=== PATIENT | female | born 1935 | race Caucasian/White ===

== ENCOUNTER 2018-09-07 10:05 | Inpatient (IN) | payer MEDICARE, BC ==
[2018-09-07] MEDS ORDERED: Ketorolac 30 MG/ML SDV IM ONE (10:37)
[2018-09-07] MEDS ORDERED: Sodium Chloride 0.9% 1,000 ML IV SCH (11:30)
--- NOTE | 2018-09-07 11:30 | EDM.PDOC ---
ED HPI GENERAL MEDICAL PROBLEM - General Stated Complaint: WEAKNESS CONFUSSION Time Seen by Provider: 09/07/18 10:10 Source of Information: Reports: Patient, EMS, Family History Limitations: Reports: Altered Mental Status, Physical Impairment - History of Present Illness INITIAL COMMENTS - FREE TEXT/NARRATIVE: 83 y.o.w.f with multiple medical issues, was brought to the ED by her daughter, by wheelchair after she fell for the 5th time at the [facility]. Today she feel out of her bed. No LOC, however, the pt was lethargic on arrival , C/O pain all over. Pt is wheelchair bound. unable to give a HPI. BP 91/35 RR 18 Pulse ox 97% on RA Pulse 72 Temp 36.9 Onset Date: 09/07/18 Onset Time: 07:00 Duration: Hour(s):, Constant Location: Reports: Back, Generalized Quality: Reports: Dull, Pressure Severity: Moderate Improves with: Reports: Rest Worsens with: Reports: Movement Context: Reports: Trauma Associated Symptoms: Reports: Headaches, Weakness back Pain Score (Numeric/FACES): 7 - Related Data Allergies Allergy/AdvReac Type Severity Reaction Status Date / Time citalopram [From Celexa] Allergy Cannot Verified 09/07/18 11:06 Remember strawberry Allergy Indigestion Verified 09/07/18 11:06 venison Allergy doesen't Uncoded 09/07/18 11:06 know Home Meds: Home Meds Gabapentin 600 mg PO BID 02/06/16 [History] Cholecalciferol (Vitamin D3) [Vitamin D3] 2,000 unit PO DAILY 05/17/16 [History] Acetaminophen [Tylenol] 650 mg PO Q4H PRN 09/01/18 [History] Carvedilol [Coreg] 6.25 mg PO WITHBREAKFAST 09/01/18 [History] Carvedilol [Coreg] 9.375 mg PO WITHDINNER 09/01/18 [History] Ciprofloxacin HCl [Cipro] 500 mg PO BID #20 tablet 09/01/18 [Rx] Clotrimazole/Betamethasone Dip [Lotrisone Cream] 1 applic TP BID PRN 09/01/18 [ History] Cyanocobalamin/Folic Acid [Vitamin H55-Sbrko Acid] 1,000 mcg PO MOWEFR@0800 [History] Docusate Sodium [Colace] 100 mg PO Q48H 09/01/18 [History] Furosemide 20 mg PO BID@08,12 09/01/18 [History] Lisinopril 10 mg PO DAILY 09/01/18 [History] Loperamide [Imodium AD] 2 mg PO ASDIRECTED PRN 09/01/18 [History] Omeprazole 20 mg PO BIDAC 09/01/18 [History] Venlafaxine [Effexor XR] 150 mg PO DAILY 09/01/18 [History] Warfarin [Coumadin] 2.5 mg PO SUTUSA 09/01/18 [History] Warfarin [Coumadin] 5 mg PO MOWETHFR 09/01/18 [History] metFORMIN [Glucophage] 500 mg PO BIDMEALS 09/01/18 [History] traMADol [Ultram] 50 mg PO Q4H PRN 09/01/18 [History] Aspirin/Acetaminophen/Caffeine [Migraine Formula Caplet] 1 tab PO Q4H PRN [History] Gabapentin [Neurontin] 300 mg PO DAILY@1200 09/07/18 [History] Pravastatin Sodium 20 mg PO BEDTIME 09/07/18 [History] Propylene Glycol/Peg 400 [Systane Ultra 0.4-0.3% Eye Drp] 1 drop EYEBOTH TID 11/21 [History] Past Medical History HEENT History: Reports: Cataract, Impaired Vision Other HEENT History: Flame retinal hemorrhage. Corneal dystrophy OU. Cardiovascular History: Reports: High Cholesterol, Hypertension, [place] Other Cardiovascular History: Ischemic vascular disease. Lower leg edema. Thrombus left ventricle. Gastrointestinal History: Reports: GERD Other Gastrointestinal History: Duodenal ulcer. Genitourinary History: Reports: Other (See Below) Other Genitourinary History: Adrenal insufficiency. Larry's Disease. 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 Falls. Neurological History: Reports: Migraines Psychiatric History: Reports: Depression Other Psychiatric History: Mild cognitive impairment. Endocrine/Metabolic History: Reports: Obesity/BMI 30+ Dermatologic History: Reports: Other (See Below) Other Dermatologic History: rash to stomach - Infectious Disease History Infectious Disease History: Reports: Chicken Pox, Influenza, Measles, Shingles - Past Surgical History HEENT Surgical History: Reports: Cataract Surgery Social & Family History - Family History HEENT: Reports: None Cardiac: Reports: Heart Failure, IA Respiratory: Reports: None GI: Reports: None OBGYN: Reports: None Musculoskeletal: Reports: Arthritis, Back pain, Chronic Neurological: Reports: Migraines Psychiatric: Reports: Depression Hematologic: Reports: SLE Immunologic: Reports: SLE Oncologic: Reports: Uterine, Other (See Below) Other Oncologic Family History: says yes but can't remember ED ROS GENERAL - Review of Systems Review Of Systems: Unable To Obtain (Lethargic) ED EXAM, NEURO - Physical Exam Exam: See Below Exam Limited By: Physical Impairment General Appearance: Lethargic, Obese (morbid) Eye Exam: Bilateral Eye: Normal Inspection Ears: Normal External Exam Nose: Normal Inspection, Normal Mucosa Throat/Mouth: Normal Lips, Normal Voice, No Airway Compromise, Other (dry mucosal membrane) Head Exam: Atraumatic, Normocephalic Neck: Normal Inspection, Supple Respiratory/Chest: Lungs Clear (poor insp effort), Normal Breath Sounds, No Accessory Muscle Use Cardiovascular: Normal Peripheral Pulses, Regular Rate, Rhythm, No Edema, No Gallop GI/Abdominal: Normal Bowel Sounds, Distended, Tender (Female) Exam: Deferred Rectal (Female) Exam: Deferred Neurological: Abnormal Gait (unable to ambulate) Back Exam: Normal Inspection, Vertebral Tenderness (L1/L2) Extremities: Limited Range of Motion Psychiatric: Normal Affect Skin Exam: Warm, Dry, Intact, Normal Color, No Rash EKG INTERPRETATION EKG Date: 09/07/18 Time: 12:15 Rhythm: NSR Rate (Beats/Min): 70 [place]: Normal P-Wave: Present QRS: Normal ST-T: Normal QT: Normal Comparison: NA - No Prior EKG Course - Vital Signs Text/Narrative:: 83 y.o.w.f with multiple medical issues, was brought to the ED by her daughter, by wheelchair after she fell for the 5th time at the [facility]. Today she feel out of her bed. No LOC, however, the pt was lethargic on arrival , C/O pain all over. Pt is wheelchair bound. unable to give a HPI. BP 91/35 RR 18 Pulse ox 97% on RA Pulse 72 Temp 36.9 PE: Morbid obese 83 y.o.w.f, wheelchair bound, lethargic with frequent falls Imaging: head, C spine and T spine: NAD L spine: Spinal stenosis, New Compression Fx L1 (10%) Labs: BUN 81 Cl 91 GFTR 10 Cr 4.7 INR 3.00 UA: No UTI CBC nl Impression: Frequent falls, Acute renal insufficiency, Hypotension, Morbid obese , unable to ambulate, New compression Fx L1 (10%), Spinal stenosis, osteoporosis , DNR/DNI Tx: ICE t o affected area, Toradol, NS bolus 11.55 am: Consultation: Dr. Krueger: accepted the pt for admission to inpatient PT/OT Reexam: SBP dropped from 91 mto 74 temporarily improved immediately after NS bolus was given Plan: Admit to [place] Placement Last Recorded V/S: Last Vital Signs Temp Pulse 69 09/07/18 11:58 Resp 14 09/07/18 11:58 BP 92/36 L 09/07/18 11:58 Pulse Ox 100 09/07/18 11:58 - Orders/Labs/Meds Orders: Active Orders 24 hr Category Date Time Status Cooling Warming Measures [RC] ASDIRECTED Care 09/07/18 10:39 Active [place] Catheter Insertion [Insert Urinary Catheter] [OM. Care 09/07/18 11:30 Ordered PC] Q24H Urinary Catheter Assessment [RC] QSHIFT Care 09/07/18 11:27 Active Sodium Chloride 0.9% [Normal Saline] 1,000 ml Med 09/07/18 11:30 Active IV ASDIRECTED Ice Bag [Ice Therapy] [OM.PC] Routine Oth 09/07/18 10:39 Ordered Medication Orders Docusate Sodium (Colace) 100 mg PO BID PRN PRN Reason: Constipation Sodium Chloride (Normal Saline) 1,000 mls @ 125 mls/hr IV ASDIRECTED ASHLEY Last Infusion: 09/07/18 12:41 Dose: 999 mls/hr Admin: 09/07/18 11:45 Dose: 125 mls/hr Sodium Chloride (Normal Saline) 1,000 mls @ 125 mls/hr IV ASDIRECTED ASHLEY Last Infusion: 09/07/18 14:57 Dose: 0 mls/hr Admin: 09/07/18 13:40 Dose: 125 mls/hr Sodium Chloride (Normal Saline) 1,000 mls @ 999 mls/hr IV .BOLUS ONE Stop: 09/07/18 15:51 Last Admin: 09/07/18 14:56 Dose: 999 mls/hr Ondansetron HCl (Zofran) 4 mg IV Q4H PRN PRN Reason: Nausea/Vomiting Labs: Laboratory Tests 09/07/18 09/07/18 09/07/18 Range/Units 10:55 10:55 10:55 WBC 9.8 (4.5-12.0) X10-3/uL RBC 4.21 (3.23-5.20) x10(6)uL Hgb 12.0 (11.5-15.5) g/dL Hct 35.8 (30.0-51.3) % MCV 85.2 (80-96) fL MCH 28.4 (27.7-33.6) pg MCHC 33.4 (32.2-35.4) g/dL RDW 14.0 (11.5-15.5) % Plt Count 329 (125-369) X10(3)uL MPV 9.3 (7.4-10.4) fL Neut % (Auto) 66.7 (46-82) % Lymph % (Auto) 21.5 (13-37) % Swisher % (Auto) 9.2 (4-12) % Eos % (Auto) 2 (1.0-5.0) % Baso % (Auto) 1 (0-2) % Neut # (Auto) 6.5 (1.6-8.3) # Lymph # (Auto) 2.1 (0.6-5.0) # Swisher # (Auto) 0.9 (0.0-1.3) # Eos # (Auto) 0.2 (0.0-0.8) # Baso # (Auto) 0.1 (0.0-0.2) # PT 28.8 H (8.7-11.1) INR 3.00 H (0.89-1.13) Sodium 133 L (135-145) mmol/L Potassium 4.4 (3.5-5.3) mmol/L Chloride 95 L D (100-110) mmol/L Carbon Dioxide 23 (21-32) mmol/L BUN 98 H D (7-18) mg/dL Creatinine 4.3 H* (0.55-1.02) mg/dL Est Cr Clr Drug Dosing TNP Estimated GFR (MDRD) 10 L (>60) BUN/Creatinine Ratio 22.8 H (9-20) Glucose 122 H (80-116) mg/dL Lactic Acid (0.4-2.2) mmol/L Calcium 9.4 (8.6-10.2) mg/dL NT-Pro-B Natriuret Pep (<=450) pg/mL Urine Color (YELLOW) Urine Appearance (CLEAR) Urine pH (5.0-6.5) Ur Specific Reserve (1.010-1.025) Urine Protein (NEGATIVE) mg/dL Urine Glucose (UA) (NEGATIVE) mg/dL Urine Ketones (NEGATIVE) mg/dL Urine Occult Blood (NEGATIVE) Urine Nitrite (NEGATIVE) Urine Bilirubin (NEGATIVE) Urine Urobilinogen (NEGATIVE) mg/dL Ur Leukocyte Esterase (NEGATIVE) Urine WBC (0) Ur Squamous Epith Cells (NS,R,O) Urine Bacteria (NS) Urine Opiates Screen (NEGATIVE) Ur Oxycodone Screen (NEGATIVE) Ur Propoxyphene Screen (NEGATIVE) Ur Barbituates Screen (NEGATIVE) Ur Tricyclics Screen (NEGATIVE) Ur Phencyclidine Scrn (NEGATIVE) Ur Amphetamine Screen (NEGATIVE) Urine MDMA Screen (NEGATIVE) U Benzodiazepines Scrn (NEGATIVE) U Cocaine Metab Screen (NEGATIVE) U Marijuana (THC) Screen (NEGATIVE) 09/07/18 09/07/18 09/07/18 Range/Units 10:55 10:55 11:29 WBC (4.5-12.0) X10-3/uL RBC (3.23-5.20) x10(6)uL Hgb (11.5-15.5) g/dL Hct (30.0-51.3) % MCV (80-96) fL MCH (27.7-33.6) pg MCHC (32.2-35.4) g/dL RDW (11.5-15.5) % Plt Count (125-369) X10(3)uL MPV (7.4-10.4) fL Neut % (Auto) (46-82) % Lymph % (Auto) (13-37) % Swisher % (Auto) (4-12) % Eos % (Auto) (1.0-5.0) % Baso % (Auto) (0-2) % Neut # (Auto) (1.6-8.3) # Lymph # (Auto) (0.6-5.0) # Swisher # (Auto) (0.0-1.3) # Eos # (Auto) (0.0-0.8) # Baso # (Auto) (0.0-0.2) # PT (8.7-11.1) INR (0.89-1.13) Sodium (135-145) mmol/L Potassium (3.5-5.3) mmol/L Chloride (100-110) mmol/L Carbon Dioxide (21-32) mmol/L BUN (7-18) mg/dL Creatinine (0.55-1.02) mg/dL Est Cr Clr Drug Dosing Estimated GFR (MDRD) (>60) BUN/Creatinine Ratio (9-20) Glucose (80-116) mg/dL Lactic Acid 2.8 H (0.4-2.2) mmol/L Calcium (8.6-10.2) mg/dL NT-Pro-B Natriuret Pep 849 H (<=450) pg/mL Urine Color Yellow (YELLOW) Urine Appearance Clear (CLEAR) Urine pH 5.0 (5.0-6.5) Ur Specific Reserve 1.020 (1.010-1.025) Urine Protein Negative (NEGATIVE) mg/dL Urine Glucose (UA) Normal (NEGATIVE) mg/dL Urine Ketones Negative (NEGATIVE) mg/dL Urine Occult Blood Negative (NEGATIVE) Urine Nitrite Negative (NEGATIVE) Urine Bilirubin Negative (NEGATIVE) Urine Urobilinogen Normal (NEGATIVE) mg/dL Ur Leukocyte Esterase Negative (NEGATIVE) Urine WBC 0-5 (0) Ur Squamous Epith Cells Few H (NS,R,O) Urine Bacteria Few H (NS) Urine Opiates Screen (NEGATIVE) Ur Oxycodone Screen (NEGATIVE) Ur Propoxyphene Screen (NEGATIVE) Ur Barbituates Screen (NEGATIVE) Ur Tricyclics Screen (NEGATIVE) Ur Phencyclidine Scrn (NEGATIVE) Ur Amphetamine Screen (NEGATIVE) Urine MDMA Screen (NEGATIVE) U Benzodiazepines Scrn (NEGATIVE) U Cocaine Metab Screen (NEGATIVE) U Marijuana (THC) Screen (NEGATIVE) 09/07/18 Range/Units 11:29 WBC (4.5-12.0) X10-3/uL RBC (3.23-5.20) x10(6)uL Hgb (11.5-15.5) g/dL Hct (30.0-51.3) % MCV (80-96) fL MCH (27.7-33.6) pg MCHC (32.2-35.4) g/dL RDW (11.5-15.5) % Plt Count (125-369) X10(3)uL MPV (7.4-10.4) fL Neut % (Auto) (46-82) % Lymph % (Auto) (13-37) % Swisher % (Auto) (4-12) % Eos % (Auto) (1.0-5.0) % Baso % (Auto) (0-2) % Neut # (Auto) (1.6-8.3) # Lymph # (Auto) (0.6-5.0) # Swisher # (Auto) (0.0-1.3) # Eos # (Auto) (0.0-0.8) # Baso # (Auto) (0.0-0.2) # PT (8.7-11.1) INR (0.89-1.13) Sodium (135-145) mmol/L Potassium (3.5-5.3) mmol/L Chloride (100-110) mmol/L Carbon Dioxide (21-32) mmol/L BUN (7-18) mg/dL Creatinine (0.55-1.02) mg/dL Est Cr Clr Drug Dosing Estimated GFR (MDRD) (>60) BUN/Creatinine Ratio (9-20) Glucose (80-116) mg/dL Lactic Acid (0.4-2.2) mmol/L Calcium (8.6-10.2) mg/dL NT-Pro-B Natriuret Pep (<=450) pg/mL Urine Color (YELLOW) Urine Appearance (CLEAR) Urine pH (5.0-6.5) Ur Specific Reserve (1.010-1.025) Urine Protein (NEGATIVE) mg/dL Urine Glucose (UA) (NEGATIVE) mg/dL Urine Ketones (NEGATIVE) mg/dL Urine Occult Blood (NEGATIVE) Urine Nitrite (NEGATIVE) Urine Bilirubin (NEGATIVE) Urine Urobilinogen (NEGATIVE) mg/dL Ur Leukocyte Esterase (NEGATIVE) Urine WBC (0) Ur Squamous Epith Cells (NS,R,O) Urine Bacteria (NS) Urine Opiates Screen Negative (NEGATIVE) Ur Oxycodone Screen Negative (NEGATIVE) Ur Propoxyphene Screen Negative (NEGATIVE) Ur Barbituates Screen Negative (NEGATIVE) Ur Tricyclics Screen Negative (NEGATIVE) Ur Phencyclidine Scrn Negative (NEGATIVE) Ur Amphetamine Screen Positive H (NEGATIVE) Urine MDMA Screen Negative (NEGATIVE) U Benzodiazepines Scrn Negative (NEGATIVE) U Cocaine Metab Screen Negative (NEGATIVE) U Marijuana (THC) Screen Negative (NEGATIVE) Meds: Medications Generic Name Dose Route Start Last Admin Trade Name Freq PRN Reason Stop Dose Admin Docusate Sodium 100 mg 09/07/18 12:04 Colace PO BID PRN Constipation Sodium Chloride 1,000 mls @ 125 mls/hr 09/07/18 11:30 09/07/18 12:41 Normal Saline IV 999 mls/hr ASDIRECTED ASHLEY Infusion Sodium Chloride 1,000 mls @ 125 mls/hr 09/07/18 14:15 09/07/18 14:57 Normal Saline IV 0 mls/hr ASDIRECTED ASHLEY Infusion Sodium Chloride 1,000 mls @ 999 mls/hr 09/07/18 14:51 09/07/18 14:56 Normal Saline IV 09/07/18 15:51 999 mls/hr .BOLUS ONE Administration Ondansetron HCl 4 mg 09/07/18 12:04 Zofran IV Q4H PRN Nausea/Vomiting Discontinued Medications Generic Name Dose Route Start Last Admin Trade Name Freq PRN Reason Stop Dose Admin Ketorolac Tromethamine 30 mg 09/07/18 10:37 09/07/18 11:10 Toradol IM 09/07/18 10:38 30 mg ONETIME ONE Administration Departure - Departure Time of Disposition: 15:11 Disposition: Admitted As Inpatient 64 Condition: Fair Clinical Impression: Frequent falls, Compression fracture of L1 lumbar vertebra - Discharge Information - My Orders Last 24 Hours: My Active Orders 09/07/18 10:39 Cooling Warming Measures [RC] ASDIRECTED Ice Bag [Ice Therapy] [OM.PC] Routine 09/07/18 11:27 Urinary Catheter Assessment [RC] QSHIFT 09/07/18 11:30 [place] Catheter Insertion [Insert Urinary Catheter] [OM.PC] Q24H Sodium Chloride 0.9% [Normal Saline] 1,000 ml IV ASDIRECTED - Assessment/Plan Last 24 Hours: My Active Orders 09/07/18 10:39 Cooling Warming Measures [RC] ASDIRECTED Ice Bag [Ice Therapy] [OM.PC] Routine 09/07/18 11:27 Urinary Catheter Assessment [RC] QSHIFT 09/07/18 11:30 [place] Catheter Insertion [Insert Urinary Catheter] [OM.PC] Q24H Sodium Chloride 0.9% [Normal Saline] 1,000 ml IV ASDIRECTED
[2018-09-07] MEDS ORDERED: Docusate Sodium 100 MG Cap PO PRN (12:04)
[2018-09-07] MEDS ORDERED: Ondansetron 4 MG/2 ML SDV IV PRN (12:04)
[2018-09-07] MEDS: Sodium Chloride 0.9% 1,000 ML IV SCH ×2 (13:40→23:34)
--- NOTE | 2018-09-07 13:43 | CT ---
INDICATION: Falling times two years, confused, lethargic. CT HEAD WITHOUT CONTRAST: Spiral examination of the brain in the axial projection with sagittal and coronal reconstructions was obtained 09/07/18 and compared with 08/31/18. Total exam DLP = 592.35 mGy-cm. The mastoid air cells were well-aerated, as previously. There is almost complete occlusion - filling in of the right maxillary antrum, which may represent sinusitis. The paranasal sinuses otherwise were fairly well -aerated. No cranial fracture site was identified. Calcifications are noted in the left vertebral and both internal carotid arteries. No shift of midline structures was noted. The ventricles are prominent, compatible with central atrophy. The cortical sulci are also somewhat prominent , especially at the temporal lobes and frontal lobes, compatible with cortical atrophy, more severe in the temporal and frontal areas. No finding to strongly suggested an acute intracranial abnormality was seen - no bleeding site or hematoma was noted. There are periventricular areas of decreased density in the white matter, compatible with mild microvascular disease, as previously. The orbits appear to be intact. IMPRESSION: 1. No acute intracranial abnormality. 2. Central and cortical atrophy, particularly temporal lobe and frontal areas. 3. Cerebrovascular disease with internal carotid and left vertebral artery calcifications. 4. Opacification of the right maxillary antrum, raising question of sinusitis in that area. This appears to be chronic with some calcifications present and was certainly present on the previous examination. 5. No significant interval change, compared with 08/31/18 examination. Report was called to Dr. Alanis at 1157 hours on 09/07/18. [facility]
--- NOTE | 2018-09-07 14:41 | CT ---
INDICATION: Falling times two years, confused, lethargic. CT CERVICAL SPINE: Spiral axial imaging of the cervical spine was obtained 11/21 - no comparisons. Total exam DLP = 539.98 mGy-cm. The apical lung visualized showed no evidence of an acute process. Extensive calcifications are noted in the aortic arch and brachiocephalic vessels. Degenerative changes are noted at the atlantoodontoid joint with narrowing of the joint space and hypertrophic degenerative changes with sclerosis and some minimal subchondral cystic changes. There is minimal narrowing of the C2-3 disk space. Minimal narrowing of the C5-6 disk space is noted. Hypertrophic changes are noted to a mild degree at C6-7 and C7-T1, as well as T1-2. Relatively minimal narrowing of neural foramina is noted at the C3-4 and C4-5 level, mainly on the left. Hypertrophic changes are noted at the lateral masses, C2 through C7. No evidence of an acute fracture or dislocation was identified with the odontoid and the atlas appearing intact. Prevertebral space appeared to be normal. Bone density may be somewhat diminished, raising question of osteoporosis or osteomalacia - correlate clinically. IMPRESSION: 1. No acute fracture or dislocation. 2. Osteoarthritis and degenerative disk disease with hypertrophic changes most prominent at the lateral masses and the atlantoodontoid joint. 3. Possible demineralization raising question of osteoporosis or osteomalacia - correlate clinically. 4. ASD with carotid artery calcifications noted. Brachiocephalic and arch of the aorta calcifications also noted. Report was called to Dr. Alanis at 1157 hours on 09/07/18. [facility]
--- NOTE | 2018-09-07 14:47 | CT ---
INDICATION: Falling times two years, confused, lethargic. CT THORACIC SPINE: Spiral 2.5 mm axial sections were obtained through the thoracic spine with sagittal and coronal reconstructions, 09/07/18 - no comparisons. Total exam DLP = 1,388.46 mGy-cm. Vertebral body heights appear to be fairly well-maintained without evidence of a definite acute fracture or dislocation. Demineralization is suggested, compatible with osteoporosis or osteomalacia - correlate clinically. Mild hypertrophic degenerative changes are noted anteriorly off vertebral bodies with anterior disk space narrowing at upper middle and lower middle thoracic levels. A vacuum disk phenomenon is noted at 2 levels in the lower middle thoracic spine. A definite fracture or dislocation was not identified. Incidentally noted were extensive arterial calcifications in the aorta. The lungs showed no definite active infiltrate or effusion; however, there may be some mild congestion. IMPRESSION: 1. No definite acute fracture or dislocation. 2. Accentuated dorsal kyphosis due to anterior loss of intervertebral disk space in the mid thoracic spine. 3. Mild degenerative changes and disk disease thoracic spine. 4. Demineralization is suggested. 5. ASD. 6. Possible mild pulmonary vascular congestion - correlate clinically. Report was called to Dr. Alanis at 1157 hours on 09/07/18. [facility]
[2018-09-07] MEDS ORDERED: Sodium Chloride 0.9% 1,000 ML IV ONE (14:51)
--- NOTE | 2018-09-07 15:02 | CT ---
INDICATION: Falling times two years, confused, lethargic. CT LUMBOSACRAL SPINE: Spiral 2.5 mm axial sections were obtained through the lumbosacral spine with sagittal and coronal reconstructions, 09/07/18. Findings are compared with previous examination of 05/18/16 CT of the abdomen and pelvis, which includes the lumbosacral spine. Total exam DLP = 983.85 mGy-cm. There is noted an interval compression fracture and vacuum disk phenomenon at T12-L1 with the compression fracture minimal along the cranial endplate of L1. This could represent an acute or subacute - healing fracture site. It is a relatively minimal fracture site. The posterior elements appear to be intact. Along the area of the neural foramen on the right at T12-L1, there is increased soft tissue density, which could represent hematoma or herniated disk, seen on axial image #43. Above the L3 level, there is no spinal stenosis. However, at the L3-4 level, there is a minimal degree of spinal stenosis due to mild bulging of the disk and prominent ligamenta flava. At L4-5, there is somewhat more severe bulging of the disk and prominent ligamenta flava, narrowing the canal to a moderate degree. No other suggestion of a focal disk herniation was identified. There is also noted evidence of degenerative disk disease with vacuum disk phenomenon and narrowing at L4-5 and severe narrowing with almost no disk space at L5-S1. Hypertrophic degenerative changes are noted at the posterior elements, mainly at L3-4 through L5-S1. Diminished bone density overall is compatible with osteoporosis or osteomalacia - correlate clinically. IMPRESSION: 1. Osteoporotic compression fracture cranial endplate and anterior and posterior vertebral body of L1 with vacuum disk phenomenon at the T12-L1 disk space, extending into the L1 vertebral body superior endplate area. This is new compared with 2016 CT of the abdomen and pelvis and could be acute or at least subacute. Additionally, on the right at that level, there is increased soft tissue density extending from the spinal canal through the area of the neural foramen, which could represent hematoma or possibly herniated disk material - the latter felt to be less likely. MRI may be helpful for confirmation. 2. Degenerative changes and disk disease L4-5 and L5-S1 with a mild to moderate degree of spinal stenosis at L3-4 with a moderate degree of spinal stenosis at L4-5. Report was called to Dr. Alanis at 1218 hours on 09/07/18. [facility]
--- NOTE | 2018-09-07 19:32 | PCM.HP ---
H&P History of Present Illness - General Date of Service: 09/07/18 Admit Problem/Dx: Admission Diagnosis/Problem Admission Diagnosis/Problem Falls Source of Information: Patient, Old Records History Limitations: Reports: Altered Mental Status - History of Present Illness Initial Comments - Free Text/Narative: Rachel is an 83-year-old female from [facility] presented because of frequent falls. She's fallen at least 5 times in last few days, and even from bed. The millan, unable to take care of her. Rachel is protracted long history of falls , fibromyalgia, peripheral neuropathy, history of atrial fibrillation on long- term anticoagulation. She's had major depression, type 2 diabetes, hypertension that have all been previously poorly controlled. 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 back Pain Score (Numeric/FACES): 7 - Related Data Allergies/Adverse Reactions: Allergies Allergy/AdvReac Type Severity Reaction Status Date / Time citalopram [From Celexa] Allergy Cannot Verified 09/07/18 11:06 Remember strawberry Allergy Indigestion Verified 09/07/18 11:06 venison Allergy doesen't Uncoded 09/07/18 11:06 know Home Medications: Home Meds Gabapentin 600 mg PO BID 02/06/16 [History] Cholecalciferol (Vitamin D3) [Vitamin D3] 2,000 unit PO DAILY 05/17/16 [History] Acetaminophen [Tylenol] 650 mg PO Q4H PRN 09/01/18 [History] Carvedilol [Coreg] 6.25 mg PO WITHBREAKFAST 09/01/18 [History] Carvedilol [Coreg] 9.375 mg PO WITHDINNER 09/01/18 [History] Ciprofloxacin HCl [Cipro] 500 mg PO BID #20 tablet 09/01/18 [Rx] Clotrimazole/Betamethasone Dip [Lotrisone Cream] 1 applic TP BID PRN 09/01/18 [ History] Cyanocobalamin/Folic Acid [Vitamin M89-[place] Acid] 1,000 mcg PO MOWEFR@0800 [History] Docusate Sodium [Colace] 100 mg PO Q48H 09/01/18 [History] Furosemide 20 mg PO BID@08,12 09/01/18 [History] Lisinopril 10 mg PO DAILY 09/01/18 [History] Loperamide [Imodium AD] 2 mg PO ASDIRECTED PRN 09/01/18 [History] Omeprazole 20 mg PO BIDAC 09/01/18 [History] Venlafaxine [Effexor XR] 150 mg PO DAILY 09/01/18 [History] Warfarin [Coumadin] 2.5 mg PO SUTUSA 09/01/18 [History] Warfarin [Coumadin] 5 mg PO MOWETHFR 09/01/18 [History] metFORMIN [Glucophage] 500 mg PO BIDMEALS 09/01/18 [History] traMADol [Ultram] 50 mg PO Q4H PRN 09/01/18 [History] Aspirin/Acetaminophen/Caffeine [Migraine Formula Caplet] 1 tab PO Q4H PRN [History] Gabapentin [Neurontin] 300 mg PO DAILY@1200 09/07/18 [History] Pravastatin Sodium 20 mg PO BEDTIME 09/07/18 [History] Propylene Glycol/Peg 400 [Systane Ultra 0.4-0.3% Eye Drp] 1 drop EYEBOTH TID 11/21 [History] Past Medical History HEENT History: Reports: Cataract, Impaired Vision Other HEENT History: Flame retinal hemorrhage. Corneal dystrophy OU. Cardiovascular History: Reports: High Cholesterol, Hypertension, PA Other Cardiovascular History: Ischemic vascular disease. Lower leg edema. Thrombus left ventricle. Gastrointestinal History: Reports: GERD Other Gastrointestinal History: Duodenal ulcer. Genitourinary History: Reports: Other (See Below) Other Genitourinary History: Adrenal insufficiency. Moneta's Disease. 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 Falls. Neurological History: Reports: Migraines Psychiatric History: Reports: Depression Other Psychiatric History: Mild cognitive impairment. Endocrine/Metabolic History: Reports: Obesity/BMI 30+ Dermatologic History: Reports: Other (See Below) Other Dermatologic History: rash to stomach - Infectious Disease History Infectious Disease History: Reports: Chicken Pox, Influenza, Measles, Shingles - Past Surgical History HEENT Surgical History: Reports: Cataract Surgery Social & Family History - Family History HEENT: Reports: None Cardiac: Reports: Heart Failure, PA Respiratory: Reports: None GI: Reports: None OBGYN: Reports: None Musculoskeletal: Reports: Arthritis, Back pain, Chronic Neurological: Reports: Migraines Psychiatric: Reports: Depression Hematologic: Reports: SLE Immunologic: Reports: SLE Oncologic: Reports: Uterine, Other (See Below) Other Oncologic Family History: says yes but can't remember - Tobacco Use Smoking Status *Q: Unknown Ever Smoked Second Hand Smoke Exposure: No - Caffeine Use Caffeine Use: Reports: Coffee - Recreational Drug Use Recreational Drug Use: No H&P Review of Systems - Review of Systems: Review Of Systems: ROS reveals no pertinent complaints other than HPI. Exam - Exam Exam: See Below - Vital Signs Vital Signs: Last Vital Signs Temp Pulse 71 09/07/18 13:10 Resp 16 09/07/18 12:55 BP 90/60 09/07/18 13:10 Pulse Ox 100 09/07/18 13:10 Weight: 90.9 kg - Exam Quality Assessment: No: Supplemental Oxygen General: Alert, Lethargic HEENT: PERRLA, Conjunctiva Clear, Hearing Intact Neck: Supple Lungs: Clear to Auscultation Cardiovascular: Regular Rate, Regular Rhythm GI/Abdominal Exam: Normal Bowel Sounds, No Distention Skin: Warm, Dry, Intact Neurological: Cranial Nerves Intact Neuro Extensive - Mental Status: Alert, Oriented x3. No: Normal Cognition Psychiatric: Depressed - Patient Data Lab Results Last 24 hrs: Laboratory Results - last 24 hr 09/07/18 09/07/18 09/07/18 Range/Units 10:55 10:55 10:55 WBC 9.8 (4.5-12.0) X10-3/uL RBC 4.21 (3.23-5.20) x10(6)uL Hgb 12.0 (11.5-15.5) g/dL Hct 35.8 (30.0-51.3) % MCV 85.2 (80-96) fL MCH 28.4 (27.7-33.6) pg MCHC 33.4 (32.2-35.4) g/dL RDW 14.0 (11.5-15.5) % Plt Count 329 (125-369) X10(3)uL MPV 9.3 (7.4-10.4) fL Neut % (Auto) 66.7 (46-82) % Lymph % (Auto) 21.5 (13-37) % [place] % (Auto) 9.2 (4-12) % Eos % (Auto) 2 (1.0-5.0) % Baso % (Auto) 1 (0-2) % Neut # (Auto) 6.5 (1.6-8.3) # Lymph # (Auto) 2.1 (0.6-5.0) # [place] # (Auto) 0.9 (0.0-1.3) # Eos # (Auto) 0.2 (0.0-0.8) # Baso # (Auto) 0.1 (0.0-0.2) # PT 28.8 H (8.7-11.1) INR 3.00 H (0.89-1.13) Sodium 133 L (135-145) mmol/L Potassium 4.4 (3.5-5.3) mmol/L Chloride 95 L D (100-110) mmol/L Carbon Dioxide 23 (21-32) mmol/L BUN 98 H D (7-18) mg/dL Creatinine 4.3 H* (0.55-1.02) mg/dL Est Cr Clr Drug Dosing TNP Estimated GFR (MDRD) 10 L (>60) BUN/Creatinine Ratio 22.8 H (9-20) Glucose 122 H (80-116) mg/dL Lactic Acid (0.4-2.2) mmol/L Calcium 9.4 (8.6-10.2) mg/dL NT-Pro-B Natriuret Pep (<=450) pg/mL Urine Color (YELLOW) Urine Appearance (CLEAR) Urine pH (5.0-6.5) Ur Specific [place] (1.010-1.025) Urine Protein (NEGATIVE) mg/dL Urine Glucose (UA) (NEGATIVE) mg/dL Urine Ketones (NEGATIVE) mg/dL Urine Occult Blood (NEGATIVE) Urine Nitrite (NEGATIVE) Urine Bilirubin (NEGATIVE) Urine Urobilinogen (NEGATIVE) mg/dL Ur Leukocyte Esterase (NEGATIVE) Urine WBC (0) Ur Squamous Epith Cells (NS,R,O) Urine Bacteria (NS) Urine Opiates Screen (NEGATIVE) Ur Oxycodone Screen (NEGATIVE) Ur Propoxyphene Screen (NEGATIVE) Ur Barbituates Screen (NEGATIVE) Ur Tricyclics Screen (NEGATIVE) Ur Phencyclidine Scrn (NEGATIVE) Ur Amphetamine Screen (NEGATIVE) Urine MDMA Screen (NEGATIVE) U Benzodiazepines Scrn (NEGATIVE) U Cocaine Metab Screen (NEGATIVE) U Marijuana (THC) Screen (NEGATIVE) 09/07/18 09/07/18 09/07/18 Range/Units 10:55 10:55 11:29 WBC (4.5-12.0) X10-3/uL RBC (3.23-5.20) x10(6)uL Hgb (11.5-15.5) g/dL Hct (30.0-51.3) % MCV (80-96) fL MCH (27.7-33.6) pg MCHC (32.2-35.4) g/dL RDW (11.5-15.5) % Plt Count (125-369) X10(3)uL MPV (7.4-10.4) fL Neut % (Auto) (46-82) % Lymph % (Auto) (13-37) % [place] % (Auto) (4-12) % Eos % (Auto) (1.0-5.0) % Baso % (Auto) (0-2) % Neut # (Auto) (1.6-8.3) # Lymph # (Auto) (0.6-5.0) # [place] # (Auto) (0.0-1.3) # Eos # (Auto) (0.0-0.8) # Baso # (Auto) (0.0-0.2) # PT (8.7-11.1) INR (0.89-1.13) Sodium (135-145) mmol/L Potassium (3.5-5.3) mmol/L Chloride (100-110) mmol/L Carbon Dioxide (21-32) mmol/L BUN (7-18) mg/dL Creatinine (0.55-1.02) mg/dL Est Cr Clr Drug Dosing Estimated GFR (MDRD) (>60) BUN/Creatinine Ratio (9-20) Glucose (80-116) mg/dL Lactic Acid 2.8 H (0.4-2.2) mmol/L Calcium (8.6-10.2) mg/dL NT-Pro-B Natriuret Pep 849 H (<=450) pg/mL Urine Color Yellow (YELLOW) Urine Appearance Clear (CLEAR) Urine pH 5.0 (5.0-6.5) Ur Specific [place] 1.020 (1.010-1.025) Urine Protein Negative (NEGATIVE) mg/dL Urine Glucose (UA) Normal (NEGATIVE) mg/dL Urine Ketones Negative (NEGATIVE) mg/dL Urine Occult Blood Negative (NEGATIVE) Urine Nitrite Negative (NEGATIVE) Urine Bilirubin Negative (NEGATIVE) Urine Urobilinogen Normal (NEGATIVE) mg/dL Ur Leukocyte Esterase Negative (NEGATIVE) Urine WBC 0-5 (0) Ur Squamous Epith Cells Few H (NS,R,O) Urine Bacteria Few H (NS) Urine Opiates Screen (NEGATIVE) Ur Oxycodone Screen (NEGATIVE) Ur Propoxyphene Screen (NEGATIVE) Ur Barbituates Screen (NEGATIVE) Ur Tricyclics Screen (NEGATIVE) Ur Phencyclidine Scrn (NEGATIVE) Ur Amphetamine Screen (NEGATIVE) Urine MDMA Screen (NEGATIVE) U Benzodiazepines Scrn (NEGATIVE) U Cocaine Metab Screen (NEGATIVE) U Marijuana (THC) Screen (NEGATIVE) 09/07/18 Range/Units 11:29 WBC (4.5-12.0) X10-3/uL RBC (3.23-5.20) x10(6)uL Hgb (11.5-15.5) g/dL Hct (30.0-51.3) % MCV (80-96) fL MCH (27.7-33.6) pg MCHC (32.2-35.4) g/dL RDW (11.5-15.5) % Plt Count (125-369) X10(3)uL MPV (7.4-10.4) fL Neut % (Auto) (46-82) % Lymph % (Auto) (13-37) % [place] % (Auto) (4-12) % Eos % (Auto) (1.0-5.0) % Baso % (Auto) (0-2) % Neut # (Auto) (1.6-8.3) # Lymph # (Auto) (0.6-5.0) # [place] # (Auto) (0.0-1.3) # Eos # (Auto) (0.0-0.8) # Baso # (Auto) (0.0-0.2) # PT (8.7-11.1) INR (0.89-1.13) Sodium (135-145) mmol/L Potassium (3.5-5.3) mmol/L Chloride (100-110) mmol/L Carbon Dioxide (21-32) mmol/L BUN (7-18) mg/dL Creatinine (0.55-1.02) mg/dL Est Cr Clr Drug Dosing Estimated GFR (MDRD) (>60) BUN/Creatinine Ratio (9-20) Glucose (80-116) mg/dL Lactic Acid (0.4-2.2) mmol/L Calcium (8.6-10.2) mg/dL NT-Pro-B Natriuret Pep (<=450) pg/mL Urine Color (YELLOW) Urine Appearance (CLEAR) Urine pH (5.0-6.5) Ur Specific [place] (1.010-1.025) Urine Protein (NEGATIVE) mg/dL Urine Glucose (UA) (NEGATIVE) mg/dL Urine Ketones (NEGATIVE) mg/dL Urine Occult Blood (NEGATIVE) Urine Nitrite (NEGATIVE) Urine Bilirubin (NEGATIVE) Urine Urobilinogen (NEGATIVE) mg/dL Ur Leukocyte Esterase (NEGATIVE) Urine WBC (0) Ur Squamous Epith Cells (NS,R,O) Urine Bacteria (NS) Urine Opiates Screen Negative (NEGATIVE) Ur Oxycodone Screen Negative (NEGATIVE) Ur Propoxyphene Screen Negative (NEGATIVE) Ur Barbituates Screen Negative (NEGATIVE) Ur Tricyclics Screen Negative (NEGATIVE) Ur Phencyclidine Scrn Negative (NEGATIVE) Ur Amphetamine Screen Positive H (NEGATIVE) Urine MDMA Screen Negative (NEGATIVE) U Benzodiazepines Scrn Negative (NEGATIVE) U Cocaine Metab Screen Negative (NEGATIVE) U Marijuana (THC) Screen Negative (NEGATIVE) Result Diagrams: 09/07/18 10:55 09/07/18 10:55 EKG INTERPRETATION EKG Date: 09/07/18 Rhythm: Other (Junctional rhythm) - Problem List (1) Frequent falls SNOMED Code(s): 501780591 ICD Code: R29.6 - REPEATED FALLS Status: Acute Current Visit: Yes (2) Acute renal failure (ARF) SNOMED Code(s): 50786279 ICD Code: N17.9 - ACUTE KIDNEY FAILURE, UNSPECIFIED Status: Acute Current Visit: Yes Qualifiers: Acute renal failure type: unspecified Qualified Code(s): N17.9 - Acute kidney failure, unspecified (3) Hypotension SNOMED Code(s): 89766452 ICD Code: I95.9 - HYPOTENSION, UNSPECIFIED Status: Acute Current Visit: Yes (4) Afib SNOMED Code(s): 79264732 ICD Code: I48.91 - UNSPECIFIED ATRIAL FIBRILLATION Status: Acute Current Visit: Yes (5) CAD (coronary artery disease) SNOMED Code(s): 16171795 ICD Code: I25.10 - ATHSCL HEART DISEASE OF [place] CORONARY ARTERY W/O ANG PCTRS Status: Acute Current Visit: Yes Qualifiers: Coronary Disease-Associated Artery/Lesion type: [place] artery (6) Palliative care encounter SNOMED Code(s): 340950690 ICD Code: Z51.5 - ENCOUNTER FOR PALLIATIVE CARE Status: Acute Current Visit: Yes (7) HTN (hypertension) SNOMED Code(s): 21515423 ICD Code: I10 - ESSENTIAL (PRIMARY) HYPERTENSION Status: Acute Current Visit: Yes (8) Type 2 diabetes mellitus SNOMED Code(s): 07392072 ICD Code: E11.9 - TYPE 2 DIABETES MELLITUS WITHOUT COMPLICATIONS Status: Acute Current Visit: Yes Qualifiers: Diabetes mellitus custodial insulin use: without 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 (9) Fibromyalgia SNOMED Code(s): 904628184 ICD Code: M79.7 - FIBROMYALGIA Status: Chronic Current Visit: Yes (10) Peripheral neuropathic pain SNOMED Code(s): 116232831 ICD Code: M79.2 - NEURALGIA AND NEURITIS, UNSPECIFIED Status: Chronic Current Visit: Yes (11) Obesity SNOMED Code(s): 744573003, 252515677 ICD Code: E66.9 - OBESITY, UNSPECIFIED Status: Acute Current Visit: Yes (12) MDD (major depressive disorder), recurrent episode SNOMED Code(s): 614885520 ICD Code: F33.9 - MAJOR DEPRESSIVE DISORDER, RECURRENT, UNSPECIFIED Status : Chronic Current Visit: Yes Qualifiers: Major depression episode severity: moderate Qualified Code(s): F33.1 - Major depressive disorder, recurrent, moderate (13) Chronic back pain SNOMED Code(s): 393552967 ICD Code: M54.9 - DORSALGIA, UNSPECIFIED; G89.29 - OTHER CHRONIC PAIN Status: Acute Current Visit: Yes Qualifiers: Back pain location: low back pain (14) HLD (hyperlipidemia) SNOMED Code(s): 18817723 ICD Code: E78.5 - HYPERLIPIDEMIA, UNSPECIFIED Status: Acute Current Visit : Yes (15) Long-term (current) use of anticoagulants, INR goal 2.5-3.5 SNOMED Code(s): 404232900, 746557318 ICD Code: Z79.01 - CHIEF OPHTHALMIC TECHNICIAN (CURRENT) USE OF ANTICOAGULANTS Status: Acute Current Visit: Yes (16) Chronic daily headache SNOMED Code(s): 733687631313 ICD Code: R51 - HEADACHE Status: Acute Current Visit: Yes Problem List Initiated/Reviewed/Updated: Yes Orders Last 24hrs: Active Orders 24 hr Category Date Time Status Patient Status [ADT] Routine ADT 09/07/18 12:04 Active Cooling Warming Measures [RC] ASDIRECTED Care 09/07/18 10:39 Active [place] Catheter Insertion [Insert Urinary Catheter] [OM. Care 09/07/18 11:30 Ordered PC] Q24H Oxygen Therapy [RC] PRN Care 09/07/18 12:04 Active Up With Assistance [RC] ASDIRECTED Care 09/07/18 12:04 Active Urinary Catheter Assessment [RC] 08,16,00 Care 09/07/18 11:27 Active VTE/DVT Education [RC] Per Unit Routine Care 09/07/18 12:04 Active Vital Signs [RC] Q4H Care 09/07/18 12:04 Active OT Evaluation and Treatment [CONS] Routine Cons 09/07/18 12:04 Active PT Evaluation and Treatment [CONS] Routine Cons 09/07/18 12:04 Active Regular Diet [DIET] Diet 09/08/18 Breakfast Active BASIC METABOLIC PANEL,BMP [CHEM] AM Lab 09/08/18 05:11 Ordered CBC WITH AUTO DIFF [HEME] AM Lab 09/08/18 05:11 Ordered Docusate Sodium [Colace] Med 09/07/18 12:04 Active 100 mg PO BID PRN Omeprazole [Omeprazole] Med 09/08/18 07:30 Ordered 20 mg PO BIDAC Ondansetron [Zofran] Med 09/07/18 12:04 Active 4 mg IV Q4H PRN PEG 400/Propylene Glycol [Systane Lubricant] Med 09/07/18 21:00 Ordered 1 drop EYEBOTH TID Sodium Chloride 0.9% [Normal Saline] 1,000 ml Med 09/07/18 11:30 Active IV ASDIRECTED Sodium Chloride 0.9% [Normal Saline] 1,000 ml Med 09/07/18 14:15 Active IV ASDIRECTED Venlafaxine [Effexor XR] Med 09/08/18 09:00 Ordered 150 mg PO DAILY Ice Bag [Ice Therapy] [OM.PC] Routine Oth 09/07/18 10:39 Ordered Resuscitation Status Routine Resus Stat 09/07/18 12:04 Ordered Medication Orders Docusate Sodium (Colace) 100 mg PO BID PRN PRN Reason: Constipation Sodium Chloride (Normal Saline) 1,000 mls @ 125 mls/hr IV ASDIRECTED ASHLEY Last Infusion: 09/07/18 12:41 Dose: 999 mls/hr Admin: 09/07/18 11:45 Dose: 125 mls/hr Sodium Chloride (Normal Saline) 1,000 mls @ 125 mls/hr IV ASDIRECTED ASHLEY Last Infusion: 09/07/18 16:05 Dose: 125 mls/hr Infusion: 09/07/18 14:57 Dose: 0 mls/hr Admin: 09/07/18 13:40 Dose: 125 mls/hr Non-Formulary Medication (Omeprazole [Omeprazole]) 20 mg PO BIDAC ASHLEY Ondansetron HCl (Zofran) 4 mg IV Q4H PRN PRN Reason: Nausea/Vomiting Propylene Glycol (Systane Lubricant) ml EYEBOTH TID ASHLEY Venlafaxine HCl (Effexor Xr) 150 mg PO DAILY [facility] Assessment/Plan Comment:: Patient is severely dehydrated and has acute kidney injury. I'll stop Lasix and lisinopril,as well as BB,Metformin and will give fluids overnight, after she were to go 2 L of bolus of normal saline. I've also discontinued most of her medications(including pain pills,Gabapentin) and physical therapy will be consulted in the morning. Repeat BMP as well.
[2018-09-07] MEDS: PEG 400/Propylene Glycol Ophth Soln 15 ML Bottle EYEBOTH SCH (20:07)
[2018-09-08] MEDS: Acetaminophen 325 MG Tab PO PRN (06:38)
[2018-09-08] MEDS: Pantoprazole 40 MG Tab.CR PO SCH (07:50)
[2018-09-08 08:05] LABS: HEMOGLOBIN A1C 6.8 % (4.5-6.2)
[2018-09-08] MEDS: Sodium Chloride 0.9% 1,000 ML IV SCH ×2 (08:41→20:59)
[2018-09-08] MEDS: PEG 400/Propylene Glycol Ophth Soln 15 ML Bottle EYEBOTH SCH ×3 (08:42→21:00)
[2018-09-08] MEDS: Venlafaxine 150 MG Cap.ER PO SCH (08:42)
[2018-09-08] MEDS: Acetaminophen/Aspirin/Caffeine 250-250-65 MG Tab PO PRN (08:59)
--- NOTE | 2018-09-08 09:02 | PN ---
DATE SEEN: 09/08/2018 HISTORY OF PRESENT ILLNESS: Ms. Belle is an 83-year-old woman who is a current resident of [facility] with a history of intermittent atrial fibrillation on anticoagulation, type 2 diabetes, hypertension, and multiple falls. 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 The patient presented to the emergency room on 09/07/2018 in a wheelchair, brought in by her daughter after falling out of bed. She was lethargic and complained of generalized pain. ER evaluation revealed significant dehydration. Multiple x-rays of her cervical, thoracic, and lumbar spine showed only subacute L1 compression fracture and CT head was unremarkable. BUN 81, creatinine 4.7, and INR 3.0. She was admitted yesterday with significant dehydration, acute on chronic renal failure, weakness and hypotension. She was started on IV fluid replacement. Multiple of her medications were discontinued. This morning, she states she feels better, but states her mind still is not clear. She is examined in her bed and she is pleasant and answers questions appropriately. She complains of headache and not getting her Excedrin Migraine. PHYSICAL EXAMINATION: VITAL SIGNS: Blood pressure 99/55, pulse 87 and regular, respirations 17, O2 saturation 94% on room air, temperature 98.4, and weight 200 pounds 6 ounces. SKIN: Anicteric, warm, dry. She has bruising over her left forearm. HEENT: Shows her mouth to be dry. She has an abrasion on the left side of her chin. LUNGS: Clear to the bases with good air movement. HEART: Regular. No murmur or gallop heard. ABDOMEN: Normal bowel sounds. Soft and nontender. No masses. No organomegaly. Moderate obesity. EXTREMITIES: Showed no edema at the feet or ankles. Dorsalis pedis pulses are intact. Motor exam appears symmetric. MENTAL STATUS: Reveals her to be slightly cloudy in thinking, but she has good recognition of this. LABORATORY DATA: White count 7100, hemoglobin 10.4. Sodium 140, potassium 4.1, BUN 80, creatinine 2.6 (improved from 4.3) yesterday. A1c 6.8. Urinalysis negative. ASSESSMENT: 1. Severe dehydration with weakness, falls, acute on chronic renal failure. 2. History of intermittent atrial fibrillation on anticoagulation. 3. History of chronic painful peripheral neuropathy. 4. Depression. 5. Chronic essential hypertension. 6. Chronic congestive heart failure. PLAN: We will continue with IV fluid rehydration. We will resume her oral anticoagulation and cautiously allow her to have occasional Excedrin Migraine. At this time, we will continue her oral Protonix for GI bleed prophylaxis. We will have physical and occupational therapy evaluations with a goal towards strengthening and once baseline blood pressure returns to normal, we will evaluate orthostatic vital signs. We will continue to provide palliative care measures for Ms. Belle for underlying painful peripheral neuropathy, low cardiac output, CHF and generalized osteoarthritic pains. /[id number] MASSIEL/FREEMAN
[2018-09-08] MEDS ORDERED: Warfarin 5 MG Tab PO SCH (16:00)
[2018-09-08] MEDS: Warfarin 5 MG Tab PO SCH (16:55)
[2018-09-09] MEDS: Acetaminophen 325 MG Tab PO PRN ×2 (00:06→09:03)
[2018-09-09] MEDS: Pantoprazole 40 MG Tab.CR PO SCH (06:53)
[2018-09-09] MEDS ORDERED: Gabapentin 300 MG Cap PO SCH ×2 (09:00→12:00)
[2018-09-09] MEDS: Gabapentin 300 MG Cap PO SCH ×3 (09:03→20:17)
[2018-09-09] MEDS: Venlafaxine 150 MG Cap.ER PO SCH (09:03)
[2018-09-09] MEDS: PEG 400/Propylene Glycol Ophth Soln 15 ML Bottle EYEBOTH SCH ×3 (09:03→20:17)
[2018-09-09] MEDS: Lactated Ringers 1,000 ML IV SCH ×3 (09:26→23:30)
--- NOTE | 2018-09-09 09:52 | PN ---
DATE SEEN: 09/09/2018 SUBJECTIVE: Ms. Belle is an 83-year-old woman who has lived at the [facility] but has been having problems with increasing frequency of falls, confusion, and is no longer able to be cared for there. She was admitted from the emergency room on 09/07/2018 after falling out of bed, being lethargic. Extensive CT exam of her spine was negative, but she was found to be significantly dehydrated, in acute renal failure with BUN of 81 and creatinine 4.7. She was hydrated and yesterday her creatinine decreased to 2.6. She is examined in her wheelchair this morning. She complained that she did not sleep at all last night because of generalized pain. Of note is that she was on both tramadol and gabapentin as an outpatient and these were stopped on her admission. PHYSICAL EXAMINATION: GENERAL: She is alert, but moans with discomfort, complaining of back pain. VITAL SIGNS: Blood pressure 110/78, pulse 78, respirations 18, O2 saturation 94% on room air, and temperature 96. HEENT: She did have a coughing spell that was nonproductive during the exam. Mouth is dry. LUNGS: Completely clear to the bases with excellent air movement. HEART: Regular without murmur, rub, or gallop. ABDOMEN: Normal bowel sounds. Soft and nontender. EXTREMITIES: Showed no edema. LABORATORY DATA: Pending. ASSESSMENT: 1. Weakness with multiple falls. 2. Acute on chronic renal failure. 3. Chronic painful peripheral neuropathy. 4. Depression. 5. History of atrial fibrillation, on anticoagulation. 6. Chronic congestive heart failure. PLAN: I will continue her IV fluid rehydration. I will resume her gabapentin and tramadol. We will continue palliative care measures for her underlying chronic pain, chronic congestive heart failure, and underlying renal disease. I anticipate discharge to care home within 48-72 hours. /[id number] MASSIEL/FREEMAN
[2018-09-09] MEDS: traMADol 50 MG Tab PO PRN (14:21)
[2018-09-09] MEDS ORDERED: Warfarin 2.5 MG Tab PO SCH (16:00)
[2018-09-09] MEDS: Warfarin 2.5 MG Tab PO SCH (16:26)
[2018-09-09] MEDS: Acetaminophen/Aspirin/Caffeine 250-250-65 MG Tab PO PRN (23:29)
[2018-09-10] MEDS: traMADol 50 MG Tab PO PRN ×3 (00:12→23:30)
[2018-09-10] MEDS ORDERED: Diltiazem 25 MG/5 ML SDV IVPUSH ONE (00:28)
[2018-09-10] MEDS ORDERED: QUEtiapine 25 MG Tab PO ONE ×2 (00:31→22:57)
[2018-09-10] MEDS ORDERED: Diltiazem 120 MG Cap.CD PO STA (01:30)
[2018-09-10] MEDS ORDERED: Furosemide 20 MG/2 ML VIAL IVPUSH STA (01:30)
[2018-09-10] MEDS: Pantoprazole 40 MG Tab.CR PO SCH (08:45)
[2018-09-10] MEDS: Acetaminophen 650 MG Tab.ER PO PRN (09:12)
[2018-09-10] MEDS: Venlafaxine 150 MG Cap.ER PO SCH (09:13)
[2018-09-10] MEDS: Gabapentin 300 MG Cap PO SCH ×3 (09:13→20:13)
[2018-09-10] MEDS: PEG 400/Propylene Glycol Ophth Soln 15 ML Bottle EYEBOTH SCH ×3 (09:13→20:14)
[2018-09-10] MEDS: Furosemide 20 MG Tab PO SCH ×2 (09:16→12:14)
[2018-09-10] MEDS: Carvedilol 6.25 MG Tab PO SCH ×2 (09:16→20:13)
--- NOTE | 2018-09-10 09:23 | PN ---
DATE SEEN: 09/10/2018 HISTORY: Mrs. Belle is an 83-year-old woman who was admitted severely dehydrated with prerenal azotemia. She has a history of congestive heart failure and frequent falls with confusion and generalized weakness. The patient went into a rapid atrial fibrillation at 150-160 overnight. She was given a dose of IV Cardizem and converted back to sinus rhythm. She had a bump in troponin as well. She states she did have chest pain that has subsequently resolved. The patient is examined in her bed this morning. She is currently groggy from a dose of bedtime Seroquel but is able to answer questions. PHYSICAL EXAMINATION: VITAL SIGNS: Blood pressure 110/73, pulse 84 and regular, respirations normal, O2 saturation 93% on 3 L nasal cannula. Weight yesterday 201. SKIN: Clear with an old abrasion on the right chin and bruising on her left arm. Mouth is dry. LUNGS: Have good breath sounds anteriorly with slight rales laterally at the bases. HEART: Regular without murmur or gallop heard. ABDOMEN: Normal bowel sounds. Soft and nontender. EXTREMITIES: Show trace edema in the feet. LABORATORY DATA: White count 13,000, hemoglobin 11.3. Electrolytes normal. BUN 21, creatinine 1.1. Troponin 2.8. BNP 1300. ASSESSMENT: 1. Acute on chronic congestive heart failure precipitated by myocardial infarction, likely demand from rapid atrial fibrillation, rate now controlled. 2. Prerenal azotemia, resolved. 3. History of intermittent atrial fibrillation, on long-term anticoagulation. 4. Chronic painful peripheral neuropathy. 5. Depression. 6. Hypertension. PLAN: I have resumed her carvedilol and her b.i.d. furosemide. We will continue telemetry monitoring and other medications as current. We will continue to provide palliative care for her underlying chronic pain, ambulatory difficulty, and underlying heart disease. I anticipate another 24-48 hours of acute hospital stay followed by discharge to detention. /[id number] MASSIEL/FREEMAN
[2018-09-10] MEDS: Warfarin 2.5 MG Tab PO SCH (16:16)
[2018-09-11] MEDS: Pantoprazole 40 MG Tab.CR PO SCH (06:33)
[2018-09-11] MEDS: Acetaminophen 650 MG Tab.ER PO PRN (06:36)
[2018-09-11] MEDS: Furosemide 20 MG Tab PO SCH ×2 (08:56→13:45)
[2018-09-11] MEDS: Carvedilol 6.25 MG Tab PO SCH ×2 (08:56→20:00)
[2018-09-11] MEDS: Venlafaxine 150 MG Cap.ER PO SCH (08:57)
[2018-09-11] MEDS: PEG 400/Propylene Glycol Ophth Soln 15 ML Bottle EYEBOTH SCH ×3 (08:57→20:00)
[2018-09-11] MEDS: Gabapentin 300 MG Cap PO SCH ×3 (10:18→20:00)
--- NOTE | 2018-09-11 10:25 | PCM.PN ---
- General Info Date of Service: 09/11/18 - Patient Data Vitals - Most Recent: Last Vital Signs Temp 98.2 F 09/11/18 07:23 Pulse 112 H 09/11/18 08:56 Resp 28 H 09/11/18 07:23 BP 138/69 09/11/18 08:56 Pulse Ox 87 L 09/11/18 07:23 Weight - Most Recent: 201 lb 3.2 oz Med Orders - Current: Current Medications Acetaminophen (Tylenol) 650 mg PO Q4H PRN PRN Reason: Pain (mild 1-3) Last Admin: 09/09/18 09:03 Dose: 650 mg Carvedilol (Coreg) 6.25 mg PO BID [facility] Last Admin: 09/11/18 08:56 Dose: 6.25 mg Docusate Sodium (Colace) 100 mg PO BID PRN PRN Reason: Constipation Furosemide (Lasix) 20 mg PO BID@08,12 [facility] Last Admin: 09/11/18 08:56 Dose: 20 mg Gabapentin (Neurontin) 300 mg PO TID [facility] Last Admin: 09/11/18 10:18 Dose: 300 mg Pantoprazole Sodium (Protonix) 40 mg PO ACBREAKFAST [facility] Last Admin: 09/11/18 06:33 Dose: 40 mg Propylene Glycol (Systane Lubricant) 0 ml EYEBOTH TID [facility] Last Admin: 09/11/18 08:57 Dose: 1 drop Tramadol HCl (Ultram) 50 mg PO Q4H PRN PRN Reason: Pain Last Admin: 09/10/18 23:30 Dose: 50 mg Venlafaxine HCl (Effexor Xr) 150 mg PO DAILY [facility] Last Admin: 09/11/18 08:57 Dose: 150 mg Warfarin Sodium (Coumadin) 5 mg PO MOWEFR@1600 [facility] Last Admin: 09/08/18 16:55 Dose: 5 mg Warfarin Sodium (Coumadin) 2.5 mg PO SUTUTHSA@1600 [facility] Last Admin: 09/10/18 16:16 Dose: 2.5 mg Discontinued Medications Acetaminophen (Tylenol Arthritis Pain) 650 mg PO Q4H PRN PRN Reason: Headache Last Admin: 09/11/18 06:36 Dose: 650 mg Acetaminophen/Aspirin/Caffeine (Excedrin Extra Strength) 1 tab PO Q4H PRN PRN Reason: Headache Last Admin: 09/09/18 23:29 Dose: 1 tab Diltiazem HCl (Diltiazem) 20 mg IVPUSH ONETIME ONE Stop: 09/10/18 00:29 Last Admin: 09/10/18 01:06 Dose: 20 mg Diltiazem HCl (Cardizem Cd) 120 mg PO ONETIME STA Stop: 09/10/18 01:31 Last Admin: 09/10/18 01:50 Dose: Not Given Furosemide (Lasix) 20 mg IVPUSH NOW STA Stop: 09/10/18 01:31 Last Admin: 09/10/18 01:50 Dose: Not Given Gabapentin (Neurontin) 600 mg PO BID [facility] Gabapentin (Neurontin) 300 mg PO DAILY@1200 [facility] Sodium Chloride (Normal Saline) 1,000 mls @ 125 mls/hr IV ASDIRECTED [facility] Stop: 09/07/18 12:40 Last Infusion: 09/07/18 12:41 Dose: 999 mls/hr Sodium Chloride (Normal Saline) 1,000 mls @ 125 mls/hr IV ASDIRECTED [facility] Last Admin: 09/08/18 20:59 Dose: 125 mls/hr Sodium Chloride (Normal Saline) 1,000 mls @ 999 mls/hr IV .BOLUS ONE Stop: 09/07/18 15:51 Last Admin: 09/07/18 14:56 Dose: 999 mls/hr Lactated Ringer's (Ringers, Lactated) 1,000 mls @ 150 mls/hr IV ASDIRECTED [facility] Last Admin: 09/09/18 23:30 Dose: 150 mls/hr Ketorolac Tromethamine (Toradol) 30 mg IM ONETIME ONE Stop: 09/07/18 10:38 Last Admin: 09/07/18 11:10 Dose: 30 mg Ondansetron HCl (Zofran) 4 mg IV Q4H PRN PRN Reason: Nausea/Vomiting Quetiapine Fumarate (Seroquel) 25 mg PO ONETIME ONE Stop: 09/10/18 00:32 Last Admin: 09/10/18 01:06 Dose: 25 mg Quetiapine Fumarate (Seroquel) 12.5 mg PO ONETIME ONE Stop: 09/10/18 22:58 Last Admin: 09/10/18 23:30 Dose: 12.5 mg Warfarin Sodium (Coumadin) 2.5 mg PO SuTuSa@1600 [facility] Warfarin Sodium (Coumadin) 5 mg PO MoWeThFr@1600 [facility] - Problem List & Annotations (1) MDD (major depressive disorder), recurrent episode SNOMED Code(s): 224062465 Code(s): F33.9 - MAJOR DEPRESSIVE DISORDER, RECURRENT, UNSPECIFIED Status: Resolved Current Visit: No Qualifiers: Major depression episode severity: moderate Qualified Code(s): F33.1 - Major depressive disorder, recurrent, moderate - Problem List Review Problem List Initiated/Reviewed/Updated: Yes - Plan Plan:: Patient is severely dehydrated and has acute kidney injury. I'll stop Lasix and lisinopril,as well as BB,Metformin and will give fluids overnight, after she were to go 2 L of bolus of normal saline. I've also discontinued most of her medications(including pain pills,Gabapentin) and physical therapy will be consulted in the morning. Repeat BMP as well.
[2018-09-11] MEDS ORDERED: Warfarin Sliding Scale PO SCH (11:00)
--- NOTE | 2018-09-11 12:11 | PN ---
DATE SEEN: 09/11/2018 HISTORY: Rachel is an 83-year-old woman from [facility], who was admitted to [facility] after several episodes of falls, weakness, lethargy. She was found to be extremely dehydrated with a creatinine of 4.2 and BUN in the 80s. She has been slowly rehydrated with IV fluid. Her mental status has fluctuated from lethargy with mild confusion to mostly alert and oriented. The patient developed an episode of rapid atrial fibrillation 2 nights ago. This she was treated with a single dose of IV Cardizem, which controlled her rate. Again, her troponin became elevated at 2.8. PHYSICAL EXAMINATION: GENERAL: She is examined this morning in her bed. She is tired and somewhat sleepy, but able to answer questions appropriately. VITAL SIGNS: Blood pressure 138/69, pulse 112 and irregular in atrial fib pattern, respirations 16, O2 saturation 87% on room air, temp 98.2. SKIN: Anicteric, warm, dry. She has a resolving abrasion on her left chin and bruise on her left arm. HEENT: Showed her mouth to be dry. LUNGS: Clear bilaterally. HEART: Irregular in atrial fib. No murmur heard. ABDOMEN: Normal bowel sounds. Soft and nontender. EXTREMITIES: Showed no significant edema. LABORATORY DATA: Yesterday showed her BUN to be down to 21 with a creatinine of 1.1, but BNP increased from 849 3 days prior to 13,000 after her cardiac episode. ASSESSMENT: 1. Subendocardial myocardial infarction. 2. Underlying atrial fibrillation with congestive heart failure. 3. Severe prerenal azotemia, resolved. 4. Generalized weakness with multiple falls. PLAN: I have resumed her carvedilol, resumed furosemide to 20 mg b.i.d. and her gabapentin at 300 mg t.i.d. We will continue supportive measures and palliative care measures for underlying weakness, chronic pain, ambulatory deficiencies, and we will continue the warfarin for atrial fibrillation. I anticipate another 24 to 48 hours of acute hospital stay followed by discharge to detention. /[id number] MASSIEL/FREEMAN
[2018-09-11] MEDS: Warfarin 5 MG Tab PO SCH (16:49)
[2018-09-11] MEDS: traMADol 50 MG Tab PO PRN (20:02)
[2018-09-12] MEDS: traMADol 50 MG Tab PO PRN ×2 (01:13→05:20)
[2018-09-12] MEDS: Carvedilol 6.25 MG Tab PO SCH ×2 (07:35→09:12)
[2018-09-12] MEDS: Furosemide 20 MG Tab PO SCH (07:36)
[2018-09-12] MEDS: Pantoprazole 40 MG Tab.CR PO SCH (07:36)
[2018-09-12] MEDS ORDERED: Furosemide 20 MG Tab PO ONE (07:45)
[2018-09-12] MEDS ORDERED: Furosemide 40 MG Tab PO SCH (08:00)
[2018-09-12] MEDS: PEG 400/Propylene Glycol Ophth Soln 15 ML Bottle EYEBOTH SCH ×3 (09:12→20:56)
[2018-09-12] MEDS: Venlafaxine 150 MG Cap.ER PO SCH (09:12)
[2018-09-12] MEDS: Gabapentin 300 MG Cap PO SCH ×3 (09:12→20:56)
[2018-09-12] MEDS ORDERED: Enalapril 5 MG Tab PO SCH (09:30)
--- NOTE | 2018-09-12 09:55 | PN ---
DATE SEEN: 09/12/2018 HISTORY: Mrs. Belle is an 83-year-old woman who was admitted from the [facility] because of repeated falls, weakness. She was found to be in severe prerenal azotemia with a BUN in the 80s and creatinine of 4.2. She was slowly rehydrated until her creatinine came down to normal and her creatinine rapidly came down to normal. She subsequently had an episode of rapid atrial fibrillation and chest discomfort. Laboratory study revealed she had a rise in troponin to 2.8, consistent with acute PR. Her BNP also sandy significantly from 800 to 13,000 to 21,000. She is diuresed. She is examined this morning in her hospital bed. She complains of a headache, but denies chest pain, dyspnea, or other focal symptoms. PHYSICAL EXAMINATION: GENERAL: She is slightly drowsy, but answers questions appropriately. VITAL SIGNS: Blood pressure 156/98, pulse 125, respirations 20, O2 saturation 92% on room air, temp 98.5. SKIN: Shows a healing bruise over left chin, left forearm, right forearm, and right knee. No new rash or injuries are noted. MOUTH: Dry. LUNGS: Have very faint expiratory wheezes, but good air movement to both bases. HEART: Irregular in atrial fib at currently 125 beats per minute. ABDOMEN: Normal bowel sounds. Soft and nontender. EXTREMITIES: Show no edema. ASSESSMENT: 1. Subacute myocardial infarction. 2. Generalized weakness with multiple falls. 3. Acute azotemia, resolved. 4. Chronic atrial fibrillation, on anticoagulation. 5. Chronic essential hypertension. 6. Cognitive deficits consistent with mild to moderate dementia. PLAN: We will continue to use diuretics. We will increase her antihypertensive medication. We will continue Physical Therapy for recuperation, strength, ambulation, etc. We will continue to provide palliative care measures for her underlying cognitive deficits, coronary artery disease, generalized osteoarthritis, and poor mobility. We will [facility] when recuperated satisfactorily. /[id number] MASSIEL/FREEMAN
[2018-09-12] MEDS: Furosemide 40 MG Tab PO SCH (12:25)
[2018-09-12] MEDS: Warfarin 2.5 MG Tab PO SCH (17:00)
[2018-09-12] MEDS: Carvedilol 12.5 MG Tab PO SCH (20:56)
[2018-09-13] MEDS: traMADol 50 MG Tab PO PRN ×2 (03:15→09:17)
[2018-09-13] MEDS: Pantoprazole 40 MG Tab.CR PO SCH (06:30)
[2018-09-13] MEDS: Carvedilol 12.5 MG Tab PO SCH (08:04)
[2018-09-13] MEDS: Gabapentin 300 MG Cap PO SCH (08:04)
[2018-09-13] MEDS: Venlafaxine 150 MG Cap.ER PO SCH (08:04)
[2018-09-13] MEDS: PEG 400/Propylene Glycol Ophth Soln 15 ML Bottle EYEBOTH SCH (08:05)
[2018-09-13] MEDS: Furosemide 40 MG Tab PO SCH (08:05)
[2018-09-13] MEDS ORDERED: Azithromycin 500 MG Tab PO ONE (08:18)
[2018-09-13 09:18] VITALS: BP 120/70
--- NOTE | 2018-09-14 04:52 | DISCH ---
DISCHARGE DATE: 09/13/2018 PRIMARY FINAL DIAGNOSIS: Acute kidney failure, resolved. OTHER DIAGNOSES: 1. Generalized weakness, multiple falls, multifactorial. 2. Subacute subendocardial myocardial infarction. 3. Chronic atrial fibrillation. 4. Chronic low back pain. 5. Chronic essential hypertension. 6. Gastroesophageal reflux disease. 7. Chronic depression. 8. Bronchitis. OPERATIONS: None. COMPLICATIONS: The patient had a slow course. She was initially rehydrated back to normal kidney function. She then sustained an episode of rapid atrial fibrillation and raised her serum troponin levels consistent with a subendocardial myocardial infarction. She was treated for congestive heart failure. Her pain medications were continued for the chronic low back pain. Chest x-ray was done showing mild cardiomegaly and no infiltrates. Echocardiogram was done showing approximately 35% ejection fraction with multisegment hypokinesis consistent with subacute CA. SUMMARY: Ms. Belle is an 83-year-old, resident of [facility], who was admitted after multiple episodes of falling. She was found to be acutely dehydrated with BUN in the 80s and creatinine of 4.2. She was rehydrated with IV fluid over the next 72 hours, and her creatinine came back down to 1.1. She developed rapid atrial fibrillation, CHF, and bumped her troponin to 2.8. This came down again consistent with cardiac event. Her proBNP also raised from 849 on admission to 21 to 55. The patient developed URI with cough while here with slight wheezing as well. The patient is discharged to [facility]. She was deemed not well enough to return to [facility]. MEDICATIONS ON DISCHARGE: Are as follows: 1. Omeprazole 20 mg daily. 2. Lisinopril 10 mg daily. 3. Gabapentin 300 mg t.i.d. 4. Furosemide 40 mg b.i.d. 5. Docusate 100 mg every 48 hours. 6. Vitamin with B12 1000 mcg daily. 7. Vitamin D 2000 units daily. 8. Carvedilol 12.5 mg b.i.d. 9. Azithromycin 250 mg daily for 5 days. 10.Tylenol p.r.n. 11.Warfarin 5 mg Tuesday, Tuesday, and Tuesday; 2.5 mg Tuesday, , Tuesday, and Tuesday. 12.Effexor XR 150 mg daily. 13.Tramadol 50 mg t.i.d. p.r.n. pain. 14.Propylene glycol eyedrops p.r.n. She is to have routine followup with her regular doctor at the residential and call should there be problems or questions prior to the next visit. This patient will require [facility] care. Rehab potential is fair. Discharge potential is poor. She will also continue to receive palliative care measures for her underlying chronic low back pain, congestive heart failure, generalized weakness, and immobility. /[id number] MASSIEL/FREEMAN
[2018-09-14] MEDS ORDERED: Azithromycin 250 MG Tab PO SCH (09:00)
== END 2018-09-13 11:13 | DRG 682 ==
LOC: FB.ED 10:05 → FB.MS 11:41
PROVIDERS: ADMIT Family Medicine; ATTEND Family Medicine
DX: R53.1 Weakness (principal); R41.0 Disorientation, unspecified; R53.83 Other fatigue; N17.9 Acute kidney failure, unspecified; I21.4 Non-ST elevation (NSTEMI) myocardial infarction; I13.0 Hypertensive heart and chronic kidney disease with heart failure and stage 1 through stage 4 chronic kidney disease, or unspecified chronic kidney disease; I95.9 Hypotension, unspecified; M80.88XA Other osteoporosis with current pathological fracture, vertebra(e), initial encounter for fracture; E27.1 Primary adrenocortical insufficiency; I48.0 Paroxysmal atrial fibrillation; F33.1 Major depressive disorder, recurrent, moderate; E86.0 Dehydration; Z51.5 Encounter for palliative care; Z66 Do not resuscitate; Y93.9 Activity, unspecified; I50.9 Heart failure, unspecified; N18.9 Chronic kidney disease, unspecified; E11.22 Type 2 diabetes mellitus with diabetic chronic kidney disease; E11.65 Type 2 diabetes mellitus with hyperglycemia; Z79.84 Long term (current) use of oral hypoglycemic drugs; R29.6 Repeated falls; Z91.81 History of falling; Z99.3 Dependence on wheelchair; W06.XXXA Fall from bed, initial encounter; Y92.092 Bedroom in other non-institutional residence as the place of occurrence of the external cause; E11.42 Type 2 diabetes mellitus with diabetic polyneuropathy; I48.2 Chronic atrial fibrillation; Z79.01 Long term (current) use of anticoagulants; I25.2 Old myocardial infarction; R51 Headache; R79.89 Other specified abnormal findings of blood chemistry; I25.10 Atherosclerotic heart disease of native coronary artery without angina pectoris; E78.5 Hyperlipidemia, unspecified; M79.7 Fibromyalgia; E66.01 Morbid (severe) obesity due to excess calories; Z68.39 Body mass index [BMI] 39.0-39.9, adult; M19.90 Unspecified osteoarthritis, unspecified site; M54.5 Low back pain; G89.29 Other chronic pain; K21.9 Gastro-esophageal reflux disease without esophagitis; H54.7 Unspecified visual loss; J06.9 Acute upper respiratory infection, unspecified; J40 Bronchitis, not specified as acute or chronic; R41.89 Other symptoms and signs involving cognitive functions and awareness; Z87.11 Personal history of peptic ulcer disease; Z86.718 Personal history of other venous thrombosis and embolism; I25.9 Chronic ischemic heart disease, unspecified; Z79.82 Long term (current) use of aspirin; Z91.018 Allergy to other foods
CPT/HCPCS: 36415; 70450; 72125; 72128; 72131; 80048; 80305; 81001; 83605; 83880; 85025; 85610; 93010; 96372; 99285 ×2; J1885; 51702; 71046; 80053; 83036; 83735; 84484; 93005; 93308; 96360; 96361; 97110-GP; 97161-GP; 97165-GO; 97530-GO; 97530-GP; 97535-GO; A9270-GY; J1940; J3490; J7030; J7120